=== PATIENT | female | born 1975 | race Caucasian/White ===

== ENCOUNTER → 2021-07-30 | Outpatient (CLI) | payer BC ==
[~2021-07-30] VITALS: Ht 167.6 cm; Wt 57.6 kg
[2021-07-30 09:54] VITALS: BP 107/77; BP 109/69
[2021-07-30 10:57] LABS: CALCIUM 8.3 mg/dL (8.5-10.1); CREATININE 0.7 mg/dL (0.6-1.3)
[2021-07-30 12:10] VITALS: BP 105/64
[2021-07-30 12:20] VITALS: BP 105/64
[2021-07-30 12:30] VITALS: BP 109/63
== END ==
LOC: M.LAB 07-09 15:30
PROVIDERS: ATTEND Internal Medicine
DX: Z01.812 Encounter for preprocedural laboratory examination (principal); R07.9 Chest pain, unspecified; I25.10 Atherosclerotic heart disease of native coronary artery without angina pectoris